=== PATIENT | female | born 1950 | race Caucasian/White ===

== ENCOUNTER → 2017-10-05 | Outpatient (CLI) | payer BC ==
[2015-07-13 14:40] VITALS: BP 108/71
[~2017-10-05] MED LIST: CITA20TA9 PO; HYDR25TA9 PO; IBUP-1007 PO; MELO15TA23 PO; TRAM50TA PO; TRAZ150T49 PO; WARF-78 PO
--- NOTE | 2017-10-05 10:31 | CARD ---
MR#: [id number] Date of Study: 10/05/2017 Ordering Physician: NIKOLAS DIETZ, Referring Physician: NIKOLAS DIETZ Tech: JUAN FRANCISCO Torres APPROVED REPORT EXAM: Two-dimensional and M-mode echocardiogram with Doppler and color Doppler. Other Information Quality : FairHR: [id number] Technically limited study due to body habitus. INDICATION Murmur RISK FACTORS Obesity 2D DIMENSIONS RVDd3.2 (2.9-3.5cm)Left Atrium(2D)3.6 (1.6-4.0cm) IVSd1.5 (0.7-1.1cm)Aortic Root(2D)3.2 (2.0-3.7cm) LVDd4.7 (3.9-5.9cm)LVOT Diameter2.1 (1.8-2.4cm) PWd1.2 (0.7-1.1cm)LVDs3.0 (2.5-4.0cm) FS (%) 35.1 %SV65.5 ml LVEF(%)64.4 (>50%) Aortic Valve AoV Peak Live.116.1cm/sAoV VTI27.9cm AO Peak GR.5.4mmHgLVOT Peak Live.122.8cm/s LVOT VTI 30.24cmAO Mean GR.3mmHg MARY ANNE (VMAX)2.21nz9TBI (VTI)3.77cm2 Mitral Valve MV E Qlrvqdtk13.2cm/sMV DECEL [id number] MV A Giipvlai59.5cm/sMV FAI04dd E/A Ratio1.0MVA (PHT)3.63cm2 TDI E/Lateral E'10.9E/Medial E'10.0 Pulmonary Valve PV Peak Jtcxbxbt228.8cm/sPV Peak Grad.6mmHg Tricuspid Valve TR P. Nsxwmdmn182ds/sRAP EAHJKDRC1gbLq TR Peak Gr.7mmHg Pulmonary Vein S1 Utqppzfi18.0cm/sD2 Caxvwcrp20.5cm/s LEFT VENTRICLE The left ventricle is normal size. There is mild to moderate concentric left ventricular hypertrophy. The left ventricular systolic function is normal. The ejection fraction is estimated at 60-65%. Ther e is normal LV segmental wall motion. The left ventricular diastolic function and filling is normal f or age. RIGHT VENTRICLE The right ventricle is normal size. The right ventricular systolic function is normal. ATRIA The left atrium size is normal. The right atrium size is normal. The interatrial septum is intact wit h no evidence for an atrial septal defect or patent foramen ovale as noted on 2-D or Doppler imaging. AORTIC VALVE The aortic valve is thickened but opens well. Doppler and Color Flow revealed no significant aortic r egurgitation. There is no significant aortic valvular stenosis. There is no aortic valvular vegetatio n. MITRAL VALVE The mitral valve is normal in structure. There is no evidence of mitral valve prolapse. There is no m itral valve stenosis. Doppler and Color-flow revealed trace mitral regurgitation. TRICUSPID VALVE The tricuspid valve leaflets are thickened , but open well. Doppler and Color Flow revealed no tricus pid valve regurgitation noted. There is no tricuspid valve prolapse or vegetation. There is no tricus pid valve stenosis. PULMONIC VALVE The pulmonic valve is not well visualized. Doppler and Color Flow revealed no pulmonic valvular regur gitation. There is no pulmonic valvular stenosis. GREAT VESSELS The aortic root is normal in size. The IVC is normal in size and collapses >50% with inspiration. PERICARDIAL EFFUSION There is no pleural effusion. There is no evidence of significant pericardial effusion. Critical Notification Critical Value: No <Conclusion> The left ventricular systolic function is normal. The ejection fraction is estimated at 60-65%. There is normal LV segmental wall motion. Trace mitral regurgitation. There is no evidence of significant pericardial effusion. Signed by : Tunde Guzman, Electronically Approved : 10/05/2017 10:30:53
== END | disposition home or self-care (01) ==
LOC: ECHO 09:18
PROVIDERS: ATTEND Family Medicine
DX: R01.1 Cardiac murmur, unspecified (principal); I10 Essential (primary) hypertension; E87.6 Hypokalemia; Z87.891 Personal history of nicotine dependence; Z88.5 Allergy status to narcotic agent
CPT/HCPCS: 93306